=== PATIENT | female | born 1980 | race Caucasian/White ===

== ENCOUNTER 2022-12-13 06:03 | Day surgery (SDC) | payer OTHER ==
[~2022-12-13 06:03] MED LIST: FERR-212 PO; PREN-385 PO
[2022-12-13] MEDS ORDERED: fentaNYL citrate 0.05 MG/ML VIAL ONE ×3 (07:29→07:48)
[2022-12-13] MEDS ORDERED: MIDAZOLAM 2 MG/2 ML VIAL ONE (07:29)
[2022-12-13] MEDS ORDERED: LIDOCAINE 2% 100 MG/5 ML UJET TP ONE (07:30)
[2022-12-13] MEDS ORDERED: FERRIC SUBSULFATE 20%-22%-8 ML PASTE ONE (07:32)
[2022-12-13] MEDS ORDERED: ONDANSETRON 4 MG/2 ML VIAL ONE ×2 (07:43→08:24)
[2022-12-13] MEDS ORDERED: DEXAMETHASONE 4 MG/ML VIAL ONE ×3 (07:43→08:24)
[2022-12-13] MEDS ORDERED: KETOROLAC 30 MG/ML VIAL ONE ×2 (07:43→08:24)
[2022-12-13] MEDS ORDERED: PROPOFOL 200 MG/20 ML VIAL IV ONE ×2 (07:43→08:23)
[2022-12-13] MEDS ORDERED: SEVOFLURANE 250 ML BTL INH ONE (07:43)
[2022-12-13] MEDS ORDERED: METOCLOPRAMIDE 10 MG/2 ML INJ VIAL ONE (08:24)
[2022-12-13] MEDS ORDERED: HYDROmorphone 1 MG/ML AMP IVP PRN (08:55)
[2022-12-13] MEDS ORDERED: LACTATED RINGERS 1,000 ML IV SCH (08:55)
[2022-12-13] MEDS ORDERED: LABETALOL 20 MG/4 ML VIAL IVP PRN (08:57)
[2022-12-13] MEDS ORDERED: hydrALAZINE 20 MG/ML VIAL IVP PRN (08:57)
== END 2022-12-13 10:10 | disposition home or self-care (01) ==
LOC: MDS 06:03 → MMU 06:06 → MDS 10:10
PROVIDERS: ATTEND Obstetrics & Gynecology
DX: N92.0 Excessive and frequent menstruation with regular cycle (principal); D25.0 Submucous leiomyoma of uterus; Z20.822 Contact with and (suspected) exposure to COVID-19
CPT/HCPCS: 58563; 87426; 93005; J1100; J1885; J2250; J2405; J2704; J2765; J3010